=== PATIENT | male | born 1965 | race Caucasian/White ===

== ENCOUNTER 2020-03-04 17:58 | Emergency (ER) | payer SELFPAY ==
[2020-03-04 18:00] VITALS: BP 169/84; PULSE 94; RESP 16; TEMP 36.9; O2SAT 99
[2020-03-04 18:34] LABS: COVID19 -Nasal RAPID Negative (Negative)
--- NOTE | 2020-03-04 18:55 | ED_ITS ---
HPI - URI/Sore Throat General Chief Complaint: Upper Respiratory Symptoms Stated Complaint: COUGH FATIGUE SOB WANTS COVID TEST Time Seen by Provider: 03/04/20 18:01 Source: patient Mode of arrival: Ambulatory History of Present Illness HPI Narrative: Patient here for requesting COVID testing in order to get a note to return back to work. Has missed work in the past 4 days due to cough congestion in the past 1 week. His employer requested COVID testing. No chest pain. Patient is a smoker. No nausea vomiting diarrhea. No fever chills. No active chest pain or exertional chest pain. MD Complaint: cough and nasal congestion Related Data Allergies Allergy/AdvReac Type Severity Reaction Status Date / Time No Known Drug Allergies Allergy Verified 03/04/20 18:05 Review of Systems Review of Systems Narrative: GENERAL: Denies chills, fatigue, malaise, fever, sweats. HEENT: Denies sinus pain, ear pain, sore throat, difficulty swallowing RESPIRATORY: Denies dyspnea, complains of cough CARDIOVASCULAR: Denies chest pain, palpitations, edema, GASTROINTESTINAL: Denies nausea, vomiting, abdominal pain, diarrhea, constipation, melena. : Denies dysuria, frequency, hematuria MUSCULOSKELETAL: denies muscle or bony pain SKIN: Denies rash, skin lesions NEUROLOGIC: Denies weakness, headache, numbness, change in speech, confusion PSYCHIATRIC: No SI or HI or hallucinations ROS Unobtainable: All systems reviewed & are unremarkable except as noted in HPI and below Patient History Social History Smoking Status: Current every day smoker Smoking Status: Current every day smoker alcohol intake frequency: holidays/special occasions only Substance Use Type: does not use Exam Narrative Exam Narrative: GENERAL: patient appears stated age. Well-nourished, well- developed patient, in no distress, not toxic not dyspneic HEAD: Normocephalic. EYES: Pupils equal round and reactive. No scleral icterus. No injection no discharge ENT: Mucous membranes moist. No drooling no tongue elevation no trismus no malocclusion NECK: Trachea midline. Non tender CARDIOVASCULAR: Regular rate and rhythm without murmurs, gallops, or rubs. RESPIRATORY: Clear to auscultation. Breath sounds equal bilaterally. No wheezes, rales, or rhonchi. Speaks full sentences. GASTROINTESTINAL: Abdomen soft, non-tender, nondistended. EXTREMITIES: No gross deformities. BACK: Nontender without deformity or crepitance. No flank tenderness. NEURO: AOx4. SKIN: Warm and dry PSYCH: Not anxious, is cooperative Initial Vital Signs Initial Vital Signs: Vital Signs Temperature 98.5 F 03/04/20 18:00 Pulse Rate 94 H 03/04/20 18:00 Respiratory Rate 16 03/04/20 18:00 Blood Pressure 169/84 H 03/04/20 18:00 Pulse Oximetry 99 03/04/20 18:00 Course Course Course Narrative: No new issues during course of stay. No additional morning new information from patient Orders Ordered: ED Orders 03/04/20 18:03 COVID19 Stat Reevaluation(s) Reevaluation #1: Patient resting comfortably. No distress. Reviewed with patient COVID results are negative and may return to work. He states that is all he is here for. Time: 19:04 Vital Signs Vital signs: Vital Signs - 8 hr 03/04/20 18:00 03/04/20 19:08 Temperature 98.5 F Pulse Rate 94 H 84 Respiratory Rate 16 16 Blood Pressure 169/84 H 155/65 H Pulse Oximetry 99 98 MDM - URI/Sore Throat Differential Diagnosis Differential diagnosis: Likely upper respiratory infection, viral infection and bronchitis Lab Data Attestation: I reviewed the patient's lab results. Labs: Lab Results 03/04/20 Range/Units 18:03 SARS-CoV-2 (PCR) Negative (Negative) MDM Narrative Medical decision making narrative: Appropriate for discharge home. No x-ray indicated. No hypoxia. There are clear lung sounds bilaterally. No distress. No labs or EKG. No chest pain. No fever. Patient understands bronchitis treated supportively. No antibiotics indicated. He agrees. Discharge Plan Departure Patient Disposition: Home Clinical Impression: Bronchitis Instructions: DI for Acute Bronchitis, Can COVID-19 be prevented? Activity Restrictions/Additional Instructions: Stop smoking. Return if worsening questions concerns. See family doctor or call provided a clinic list Saturday for family doctor for recheck. Be sure to have your blood pressure recheck as well. Referrals: Merged With [facility] [Outside] Stand Alone Forms: Work Release Note
[2020-03-04 19:08] VITALS: BP 155/65; PULSE 84; RESP 16; O2SAT 98
== END 2020-03-04 19:07 | disposition home or self-care (01) ==
LOC: ED 19:12
PROVIDERS: Emergency Provider Emergency Medicine
DX: J40 Bronchitis, not specified as acute or chronic (principal); R09.81 Nasal congestion; Z20.822 Contact with and (suspected) exposure to COVID-19
CPT/HCPCS: 87635; 99281; 99282; C9803